=== PATIENT | female | born 1980 ===

== ENCOUNTER 2017-11-23 20:14 | Inpatient (IN) | payer MEDICAID ==
[2017-11-23 20:55] VITALS: BMI 35.2
[2017-11-23] MEDS ORDERED: Lactated Ringer's 1,000 ML IV ONE (20:55)
[2017-11-23] MEDS ORDERED: Lactated Ringer's 1,000 ML IV SCH (21:00)
[2017-11-23 21:20] LABS: BASO % 0.7 % (0.0-2.0); EOS % 0.5 % (0.0-4.0); HEMOGLOBIN 12.8 g/dL (12.0-16.0); LYMPH # 2.2 K/uL (1.0-4.3); LYMPH % 32.1 % (20.0-40.0); MEAN CELL VOLUME 91.8 fl (81.0-99.0); MEAN CORPUSCULAR HEMOGLOBIN 31.7 pg (27.0-31.0); MEAN CORPUSCULAR HGB CONC 34.5 g/dL (33.0-37.0); MEAN PLATELET VOLUME 8.9 fl (7.2-11.7); MONO # 0.7 K/uL (0.0-0.8); MONO % 9.7 % (0.0-10.0); RBC 4.04 Mil/uL (3.80-5.20); RED CELL DISTRIBUTION WIDTH 13.3 % (11.5-14.5)
[2017-11-23 21:56] VITALS: O2SAT 99
[2017-11-24] MEDS ORDERED: Nalbuphine HCL 10 mg/ml Ampule IVP PRN (00:18)
[2017-11-24] MEDS ORDERED: Oxytocin 30 UNIT 30 UNITS/500 ML BAG IV ONE ×2 (12:38→19:55)
[2017-11-24] MEDS: Lactated Ringer's 1,000 ML IV SCH ×2 (13:30→14:30)
[2017-11-24] MEDS ORDERED: Fentanyl/Bupivacaine HCl 250 ML EPI ONE (13:31)
--- NOTE | 2017-11-24 15:53 | OBHP ---
Datetime: 11/24/2017 12:31 FHR - Baseline A Provider: 130 Contraction Comments Provider: Irregular NICHD Variability Prov Fetus A: Moderate 6-25bpm NICHD Accel Fetus A IP Provider: [id number] FHR Category Provider Fetus A: Category I NICHD Decel Fetus A IP Provider: None Dilatation, Provider: 4 Effacement, Provider: 50 Station, Provider: -3 Datetime: 11/23/2017 20:28 IP Adm Impression: Term, intrauterine IP Admit Plan: Admit to unit; Initiate labor induction protocol Admit Comment, IP Provider: 37 y/o female at 40.0 wks GA, based on 1st trimester u/s, presents to LND for IOL. Patient reports good movements, denies VB or LOF. She states she had GDM during last (2015). She denies any complications during this . GBS negative. Denies n/v/ headache/dizziness. PNC: [facility] Dr. Herrera OBHx: , hx of GDM 2015 PMHx: none FHx: maternal grandmother: HTN _ DM SurgicalHx: liposuction in 2003 SHX: denies current etoh, tobacco, recreational drug use Allergies: NKDA Home meds: vitamins O: Afebrile BP 117/61 HR 85 Heart: RRR Chest: CTA B/L Abd: Soft,NT ,Bs- present FHR: 140 w/ moderate variability Banks: irregular contractions SVE: (evaluated by Dr. Up, chaperoned by Nurse David) technically difficult exam due to bod y habitus. closed cervix. Assessment: IUP at 40.0 wk GA Encounter for Induction of labor NST - Reactive Cervix closed Plan: Admit to LND cbc ordered Type and screen 2 bags of 1L LR boluses 1L LR 125mL/hr Cervidil 10mg Vag once May have epidural. Anesthesiologist consulted. [place] hand sewer ID#[id number] Caitlin Philip PGY-I OB attending addendum: Patient seen me agree with above assessment and plan. Note patient states current associ ated with 40 pound weight gain. Pelvic Type - PN: Adequate Extremities - PN: Normal Abdomen - PN: Normal Back - PN: Normal Breast - PN: Not Done Lungs - PN: Normal Heart - PN: Normal Thyroid - PN: Normal Neurologic - PN: Normal HEENT - PN: Normal General - PN: Normal Presentation-Admit: Vertex Membranes, Provider: Intact Comments, ACOG Physical Exam: U/S at bedside shows vertex presentation Gestation - Est Wks by US: 40.0 IP Hx Assessment: The History has been Reviewed and is Current Vital Signs Provider: Reviewed; Within Normal Limits IP Indication for Induction Oth: AMA+Obesity IP Chief Complaint: Scheduled induction of labor Genitourinary Exam: Not Done DTRs - PN: Not Done
[2017-11-24] MEDS ORDERED: OXYTOCIN/0.9 % NS 20 UNIT/1,000 ML BAG IV ONE ×2 (19:52→19:55)
[2017-11-24] MEDS ORDERED: Benzocaine/Menthol SPRAY TOP PRN ×2 (19:55→21:58)
[2017-11-25 07:45] LABS: BASO % 0.2 % (0.0-2.0); EOS % 0.4 % (0.0-4.0); HEMOGLOBIN 12.5 g/dL (12.0-16.0); LYMPH # 1.8 K/uL (1.0-4.3); LYMPH % 20.1 % (20.0-40.0); MEAN CORPUSCULAR HEMOGLOBIN 32.2 pg (27.0-31.0); MEAN PLATELET VOLUME 8.6 fl (7.2-11.7); MONO # 0.8 K/uL (0.0-0.8); MONO % 8.5 % (0.0-10.0); NEUT # 6.5 K/uL (1.8-7.0); NEUT % 70.8 % (50.0-75.0); NRBC % 0.2 % (0.0-0.0); RBC 3.88 Mil/uL (3.80-5.20); RED CELL DISTRIBUTION WIDTH 13.6 % (11.5-14.5); WHITE BLOOD COUNT 9.2 K/uL (4.8-10.8)
--- NOTE | 2017-11-25 12:27 | OBPPN ---
Datetime: 11/25/2017 05:25 PP Pain Prov: Within normal limits PP Nausea Prov: Denies PP Flatus Prov: No PP BM Prov: No PP Breasts Prov: Not Done PP Heart Prov: Normal PP Lungs Prov: Normal PP Abdomen/Uterus Prov: Normal PP Lochia Prov: Normal PP Vulva/Perineum Prov: Not Done PP CVA Tenderness Prov: Normal PP Extremities Prov: Normal PP C/S Incision Prov: Not Applicable PP Progress Prov: Normal PP Impression Prov: Normal progression PP Plan Prov: Continue present management PP Progress Note Prov: Patient seen and examined at the bedside in morning. Patient lying comfortabl y in bed. Denies passting flatus or having BM. Tolerating PO diet.Lochia like menses. Patient breast feeding without any difficulties. VSS, Afebrile Gen: NAD Lungs: CTA bilaterally CVS: RRR, S1, S2 WNL, no murmurs. Abd: ND, +BS, appropriated tenderness, fundus firm at umbilical level. Ext: No edema, negative calf tenderness. Neuro/psych: AAOx3 A/P: 37 y/o female 40.3 wk GA ppd1 -Encourage ambulation -Diet as tolerated -Ibuprofen 600 mg for pain mgmt -Senakot for constipation -anticipated discharge 11/26/2017 Caitlin Philip PGY-I Attending addendum: I saw and examined the patient at bedside myself today. I reviewed the resident note above and agr ee with findings and management. Azra Murray MD Vital Signs Provider PP: Reviewed; Within Normal Limits
--- NOTE | 2017-11-26 09:41 | OBPPN ---
Datetime: 11/26/2017 05:30 PP Pain Prov: Within normal limits PP Nausea Prov: Denies PP Flatus Prov: Yes PP BM Prov: No PP Breasts Prov: Not Done PP Heart Prov: Normal PP Lungs Prov: Normal PP Abdomen/Uterus Prov: Normal PP Lochia Prov: Normal PP Vulva/Perineum Prov: Not Done PP CVA Tenderness Prov: Normal PP Extremities Prov: Normal PP C/S Incision Prov: Not Applicable PP Progress Prov: Normal PP Impression Prov: Normal progression PP Plan Prov: Continue present management; Discharge PP Progress Note Prov: Patient seen and examined at the bedside in morning. Patient passing gas, no bowel movement yet. Tolerating PO diet.Lochia like menses. Patient without any difficu lties. VSS, Afebrile Gen: NAD Lungs: CTA bilaterally CVS: RRR, S1, S2 WNL, no murmurs. Abd: ND, +BS, appropriated tenderness, fundus firm at umbilical level. Ext: No edema, negative calf tenderness. Neuro/psych: AAOx3 A/P: 37 y/o female 40.3 wk GA ppd2 -Encourage ambulation -Diet as tolerated -Ibuprofen 600 mg for pain mgmt -Senakot for constipation -discharge later today Caitlin Philip PGY-I OB Hospitalist note; Pt seen on rounds...agree with PGY1 note [facility] Vital Signs Provider PP: Reviewed; Within Normal Limits
--- NOTE | 2017-11-26 09:43 | OBDCSUM ---
Datetime: 11/26/2017 09:40 Discharged to, Provider: Home Follow up at, Provider: Dr Herrera: [facility] Disch Instr Activity: Normal activity Disch Instr Diet: Regular Discharge Instructions, Provider: Routine instructions given Discharge Diagnosis, Provider: Term Delivered Follow up in weeks, Provider: 6w Disch Referrals: None Contraception discussed, Prov: Yes Disch Activity Restrictions: No sexual activity; Nothing in vagina - [place], tampons, douche
[2017-11-26 21:29] VITALS: BP 125/86; PULSE 59; RESP 16; TEMP 97.3
== END 2017-11-26 13:05 | disposition home or self-care (01) | DRG 373 ==
LOC: H.L&D 20:56 → H.OB/GYN 11-24 21:50
PROVIDERS: ADMIT Obstetrics & Gynecology; ATTEND Obstetrics & Gynecology
PROC: 4A1HXCZ Monitoring of Products of Conception, Cardiac Rate, External Approach (ICD-10-PCS; 2017-11-23)
PROC: 10E0XZZ Delivery of Products of Conception, External Approach (ICD-10-PCS; principal; 2017-11-24)
DX: O80 Encounter for full-term uncomplicated delivery (principal); Z3A.40 40 weeks gestation of pregnancy; Z37.0 Single live birth; Z82.49 Family history of ischemic heart disease and other diseases of the circulatory system; Z83.3 Family history of diabetes mellitus